=== PATIENT | male | born 1965 | race American Indian/Alaskan Native ===

== ENCOUNTER 2019-02-25 14:18 | Emergency (ER) | payer OTHER ==
--- NOTE | 2019-02-25 14:53 | Emergency Department Report ---
Blank Doc - Documentation Documentation: This is a 53-year-old male that presents with dysuria. Denies any penile disc harge. This initial assessment/diagnostic orders/clinical plan/treatment(s) is/are subject to change based on patient's health status, clinical progression and re- assessment by fellow clinical providers in the ED. Further treatment and workup at subsequent clinical providers discretion. Patient/guardians urged not to elope from the ED as their condition may be serious if not clinically assessed and managed. Initial orders include: 1- Patient sent to [facility] for further evaluation and treatment 2- UA 3- GC
[2019-02-25 16:04] LABS: Bacteria,Urine 1+ /HPF (Negative); Bilirubin,Urine NEG (Negative); Blood,Urine NEG (Negative); Color,Urine Yellow (Yellow); Mucus,Urine FEW /HPF; Protein,Urine <15 mg/dL mg/dL (Negative); Urobilinogen,Urine < 2.0 mg/dL (<2.0)
--- NOTE | 2019-02-25 17:29 | Emergency Department Report ---
ED Male HPI - General Chief complaint: Urogenital-Male Stated complaint: BURNING PENIS Time Seen by Provider: 02/25/19 14:52 Source: patient Mode of arrival: Ambulatory Limitations: No Limitations - History of Present Illness Initial comments: This is a 53-year-old -[place] male that presents to the emergency room with penile discharge and dysuria for 3-4 days. Patient states he is sexually active with his girlfriend for one year and concerned of possibly contracted STD. He denies testicular swelling or pain, pelvic pain, back pain, urinary frequency, and urgency. MD Complaint: penile discharge, dysuria Onset/Timin -: days(s) Location: penis Radiation: none Severity: mild Severity scale (0 -10): 3 Quality: burning Consistency: intermittent Improves with: none Worsens with: urination, sexual intercourse discharge, dysuria. denies: swelling, mass, rash, urinary retention, blood in urine, fever, nausea/vomiting, incontinence - Related Data Sexually active: Yes Previous Rx's Medication Instructions Recorded Last Taken Type Doxycycline Hyclate [Doxycycline 100 mg PO Q12HR #14 tab 02/25/19 Unknown Rx Hyclate TAB] hydroCHLOROthiazide [HCTZ] 12.5 mg PO QDAY #30 capsule 02/25/19 Unknown Rx Allergies Allergy/AdvReac Type Severity Reaction Status Date / Time No Known Allergies Allergy Verified 02/25/19 14:54 ED Review of Systems ROS: Stated complaint: BURNING PENIS Other details as noted in HPI Constitutional: denies: chills, fever Respiratory: denies: cough, shortness of breath, wheezing Cardiovascular: denies: chest pain, palpitations Gastrointestinal: denies: abdominal pain, nausea, diarrhea Genitourinary: dysuria, discharge. denies: urgency Musculoskeletal: denies: back pain, joint swelling, arthralgia Skin: denies: rash, lesions Neurological: denies: headache, weakness, paresthesias Psychiatric: denies: anxiety, depression ED Past Medical Hx - Past Medical History Previous Medical History?: No - Surgical History Past Surgical History?: No - Social History Smoking Status: Current Every Day Smoker Substance Use Type: None - Medications Home Medications: Home Medications Medication Instructions Recorded Confirmed Last Taken Type Doxycycline Hyclate [Doxycycline 100 mg PO Q12HR #14 tab 02/25/19 Unknown Rx Hyclate TAB] hydroCHLOROthiazide [HCTZ] 12.5 mg PO QDAY #30 capsule 02/25/19 Unknown Rx ED Physical Exam - General Limitations: No Limitations General appearance: alert, in no apparent distress - Respiratory Respiratory exam: Present: normal lung sounds bilaterally. Absent: respiratory distress - Cardiovascular Cardiovascular Exam: Present: regular rate, normal rhythm. Absent: systolic murmur, diastolic murmur, rubs, gallop - GI/Abdominal GI/Abdominal exam: Present: soft, normal bowel sounds. Absent: distended, tenderness, guarding, rebound, rigid - Back Exam Back exam: Absent: CVA tenderness (R), CVA tenderness (L) - Neurological Exam Neurological exam: Present: alert, oriented X3 - Psychiatric Psychiatric exam: Present: normal affect, normal mood - Skin Skin exam: Present: warm, dry, intact, normal color. Absent: rash ED Course Vital Signs 02/25/19 14:52 Temperature 98.4 F Pulse Rate 85 Respiratory 18 Rate Blood Pressure 156/107 [Right] O2 Sat by Pulse 99 Oximetry ED Medical Decision Making - Medical Decision Making Patient was examined by me. Patient in no acute distress. Blood pressure elevated on arrival. He is asymptomatic. Given clonidine 0.1 mg by mouth once while in ER. Patient's reports multiple readings of elevated blood pressure in the family history. He refuses to follow-up with the primary care doctor. He will be treated for hypertension with hydrochlorothiazide 12.5 mg by mouth daily. A urinalysis and gonorrhea and Chlamydia was obtained. Urinalysis is unremarkable. Empirically treated with Rocephin 250 mg IM, metronidazole 2 g by mouth, and azithromycin 1 g by mouth. Start doxycycline for urethritis. Discharged home in stable condition. Discussed prevention options. F/U with PCP or Health Department. Critical care attestation.: If time is entered above; I have spent that time in minutes in the direct care of this critically ill patient, excluding procedure time. ED Disposition Clinical Impression: STD exposure, Penile discharge, Urethritis, Asymptomatic hypertension Disposition: TO HOME OR SELFCARE Is pt being admited?: No Does the pt Need Aspirin: No Condition: Stable Instructions: Sexually Transmitted Diseases (ED), Safe Sex (ED), Nonspecific Urethritis in Men (ED), Hypertension (ED) Additional Instructions: Avoid drinking alcohol while taking antibiotics and for 24 hours after completion. Continue safe sexual intercourse. Follow up with Primary Care Provider or health department. Prescriptions: Doxycycline Hyclate [Doxycycline Hyclate TAB] 100 mg PO Q12HR #14 tab hydroCHLOROthiazide [HCTZ] 12.5 mg PO QDAY #30 capsule Referrals: [facility] [Outside] - 3-5 Days [facility] [Outside] - 3-5 Days [facility] [Outside] - 3-5 Days Forms: STI Treatment and Prevention Time of Disposition: 17:49
[2019-02-25] MEDS ORDERED: XYLOCAINE 1% MPF 5 mL INFILTRATI ONE (17:51)
[2019-02-25] MEDS ORDERED: ROCEPHIN IM ONE (17:51)
[2019-02-25] MEDS ORDERED: FLAGYL PO ONE (17:51)
[2019-02-25] MEDS ORDERED: ZITHROMAX PO ONE (17:51)
[2019-02-25] MEDS ORDERED: CATAPRES PO ONE (18:26)
[2019-02-25 19:29] VITALS: BP 142/98
== END 2019-02-25 19:30 | disposition home or self-care (01) ==
LOC: ED 14:18
DX: N34.2 Other urethritis (principal); I10 Essential (primary) hypertension; F17.200 Nicotine dependence, unspecified, uncomplicated; Z20.2 Contact with and (suspected) exposure to infections with a predominantly sexual mode of transmission
CPT/HCPCS: 81001; 87086; 87591; 96372; 99283; J0696